=== PATIENT | female | born 1995 | race Caucasian/White ===

== ENCOUNTER 2016-08-28 21:48 | Emergency (ER) | payer OTHER ==
[~2016-08-28] VITALS: Ht 162.6 cm; Wt 63.0 kg
[~2016-08-28 21:48] MED LIST: BACT800T5 PO; IBUP600 PO; PERC5TAB12 PO; TRI-TAB PO; ZOFR4TAB3 SL
[2016-08-28 21:49] VITALS: BP 126/88; PULSE 71; RESP 16; TEMP 98.5; O2SAT 97
[2016-08-28] MEDS ORDERED: BIRTH CONTROL (22:47)
== END 2016-08-28 23:47 | disposition left against medical advice (07) ==
LOC: NED 21:48
DX: R23.9 Unspecified skin changes (principal)
CPT/HCPCS: 99281